=== PATIENT | female | born 2000 | race American Indian/Alaskan Native ===

== ENCOUNTER 2020-11-07 01:23 | Emergency (ER) | payer MEDICAID ==
[2020-11-07 02:50] LABS: Bilirubin,Urine NEG (Negative); Blood,Urine MOD (Negative); Color,Urine Yellow (Yellow); Mucus,Urine FEW /HPF; Protein,Urine <15 mg/dL mg/dL (Negative); Urobilinogen,Urine < 2.0 mg/dL (<2.0)
[2020-11-07 02:51] LABS: Basophils % (Auto) 0.3 % (0.0-1.8); Eosinophils # (Auto) 0.2 K/mm3 (0.0-0.4); Eosinophils % (Auto) 1.5 % (0.0-4.3); Hematocrit 36.7 % (30.3-42.9); Lymphocytes # (Auto) 2.9 K/mm3 (1.2-5.4); Lymphocytes % (Auto) 28.6 % (13.4-35.0); Mean Corpuscular HGB Conc 33 % (30-34); Mean Corpuscular Volume 90 fl (79-97); Monocytes # (Auto) 0.9 K/mm3 (0.0-0.8); Monocytes % (Auto) 8.8 % (0.0-7.3); Platelet Count 288 K/mm3 (140-440); Red Blood Count 4.07 M/mm3 (3.65-5.03)
[2020-11-07 03:02] LABS: Alanine Aminotransferase 8 units/L (7-56); Albumin 4.4 g/dL (3.9-5); BUN/Creatinine Ratio 21; Blood Urea Nitrogen 17 mg/dL (7-17); Calcium 9.7 mg/dL (8.4-10.2); Hemolysis Index 3
[2020-11-07] MEDS ORDERED: ACETAMINOPHEN 500 MG TAB PO ONE (03:13)
--- NOTE | 2020-11-07 04:15 | Ultrasound Report ---
OB Ultrasound HISTORY: Pelvic pain, positive . TECHNIQUE: Grayscale and color imaging performed. COMPARISON: None FINDINGS: Uterus measures 7.5 x 4.7 x 4.9 cm with endometrial convex measuring 1.6 cm. No intrauterin e gestation identified. The right ovary appears normal with preserved blood flow. The left ovary is not visualized on this ex am. No pelvic free fluid demonstrated. IMPRESSION: 1. No intrauterine gestation identified. 2. Left ovary not visualized. 3. Otherwise unremarkable exam. Signer Name: Marcelo Pierre MD Signed: 11/07/2020 4:11 AM Workstation Name: [id number]
[2020-11-07 05:05] VITALS: BP 139/68
--- NOTE | 2020-11-07 05:07 | Emergency Department Report ---
ED Abdominal Pain HPI - General Chief Complaint: Abdominal Pain Stated Complaint: CRAMPING WITH NO PERIOD DISCHARGE Source: patient Mode of arrival: Ambulatory Limitations: No Limitations - History of Present Illness Initial Comments: Patient is a A2 19-year-old -Vin[place] female with no past medical history presents to the ED with complaint of acute onset persistent suprapubic pain for the last 1 week, worse in the last 2 days. Patient states that her LMP was October 03, 2020 and that she has not had a menstrual cycle yet. Patient denies vaginal bleeding, vaginal discharge, dysuria, urinary frequency and urgency, fever, chills, cough, nausea and vomiting, fever, chills, traumatic injury, low back pain, diarrhea, sore throat or headache. MD Complaint: abdominal pain (suprapubic) -: Sudden, week(s) (1) Location: suprapubic Radiation: none Migration to: no migration Severity: moderate Severity scale (0 -10): 6 Quality: cramping, sharp Consistency: constant Improves With: nothing Worsens With: nothing Associated Symptoms: denies other symptoms. denies: nausea, vomiting, diarrhea, fever, chills, constipation, dysuria, hematemesis, hematochezia, melena, korey turia, anorexia, syncope - Related Data LMP Date: 10/03/20 Previous Rx's Medication Instructions Recorded Last Taken Type Acetaminophen [Tylenol] 500 mg PO Q6HR PRN #30 tablet 11/07/20 Unknown Rx Allergies Allergy/AdvReac Type Severity Reaction Status Date / Time No Known Allergies Allergy Unverified 11/07/20 02:05 ED Review of Systems ROS: Stated complaint: CRAMPING WITH NO PERIOD DISCHARGE Other details as noted in HPI Constitutional: denies: chills, fever Eyes: denies: eye pain, eye discharge, vision change ENT: denies: ear pain, throat pain Respiratory: denies: cough, shortness of breath, wheezing Cardiovascular: denies: chest pain, palpitations Endocrine: no symptoms reported Gastrointestinal: abdominal pain (Suprapubic pain). denies: nausea, vomiting, diarrhea Genitourinary: denies: urgency, dysuria, discharge Musculoskeletal: denies: back pain, joint swelling, arthralgia Skin: denies: rash, lesions Neurological: denies: headache, weakness, paresthesias Psychiatric: denies: anxiety, depression Hematological/Lymphatic: denies: easy bleeding, easy bruising ED Past Medical Hx - Past Medical History Previous Medical History?: No - Surgical History Past Surgical History?: No - Social History Smoking Status: Never Smoker Substance Use Type: None - Medications Home Medications: Home Medications Medication Instructions Recorded Confirmed Last Taken Type Acetaminophen [Tylenol] 500 mg PO Q6HR PRN #30 tablet 11/07/20 Unknown Rx ED Physical Exam - General Limitations: No Limitations General appearance: alert, in no apparent distress - Head Head exam: Present: atraumatic, normocephalic, normal inspection - Eye Eye exam: Present: normal appearance, PERRL, EOMI Pupils: Present: normal accommodation - ENT ENT exam: Present: normal exam, normal orophraynx, mucous membranes moist, TM's normal bilaterally, normal external ear exam - Neck Neck exam: Present: normal inspection, full ROM - Respiratory Respiratory exam: Present: normal lung sounds bilaterally. Absent: respiratory distress, wheezes, rales, rhonchi, chest wall tenderness, accessory muscle use, decreased breath sounds, prolonged expiratory - Cardiovascular Cardiovascular Exam: Present: regular rate, normal rhythm, normal heart sounds. Absent: systolic murmur, diastolic murmur, rubs, gallop - GI/Abdominal GI/Abdominal exam: Present: soft, tenderness (Palpable mild suprapubic tenderness), normal bowel sounds. Absent: guarding, rebound, hyperactive bowel sounds, hypoactive bowel sounds, organomegaly - Bi-manual exam: Present: other (Pelvic exam deferred at this time) - Extremities Exam Extremities exam: Present: normal inspection, normal capillary refill - Back Exam Back exam: Present: normal inspection, full ROM. Absent: tenderness, CVA tenderness (R), CVA tenderness (L), muscle spasm, paraspinal tenderness - Neurological Exam Neurological exam: Present: alert, oriented X3, CN II-XII intact, normal gait, reflexes normal - Psychiatric Psychiatric exam: Present: normal affect, normal mood - Skin Skin exam: Present: warm, dry, intact, normal color. Absent: rash ED Medical Decision Making - Lab Data Result diagrams: 11/07/20 02:19 11/07/20 02:19 - Radiology Data Radiology results: report reviewed, image reviewed [facility] [address] [place] [address] Ultrasound Report Signed Patient: DAKOTA GUERRA MR#: [id number] : 2000 Acct:[id number] Age/Sex: 19 / F ADM Date: 11/07/20 Loc: ED Attending Dr: Ordering Physician: KAVITHA RAMON Date of Service: 11/07/20 Procedure(s): US OB transvaginal Accession Number(s): [id number] cc: KAVITHA RAMON OB Ultrasound HISTORY: Pelvic pain, positive . TECHNIQUE: Grayscale and color imaging performed. COMPARISON: None FINDINGS: Uterus measures 7.5 x 4.7 x 4.9 cm with endometrial convex measuring 1.6 cm. No intrauterine gestation identified. The right ovary appears normal with preserved blood flow. The left ovary is not visualized on this exam. No pelvic free fluid demonstrated. IMPRESSION: 1. No intrauterine gestation identified. 2. Left ovary not visualized. 3. Otherwise unremarkable exam. Signer Name: Marcelo Pierre MD Signed: 11/07/2020 4:11 AM Workstation Name: [id number] Transcribed By: JW Dictated By: Marcelo Pierre MD Electronically Authenticated By: Marcelo Pierre MD Signed Date/Time: 11/07/20410 DD/ 9 TD/TT: ------- [address] [address] Ultrasound Report Signed Patient: DAKOTA GUERRA MR#: [id number] : 2000 Acct:[id number] Age/Sex: 19 / F ADM Date: 11/07/20 Loc: ED Attending Dr: Ordering Physician: KAVITHA RAMON Date of Service: 11/07/20 Procedure(s): US OB <= 14 weeks fetus Accession Number(s): [id number] cc: KAVITHA RAMON OB Ultrasound HISTORY: Pelvic pain, positive . TECHNIQUE: Grayscale and color imaging performed. COMPARISON: None FINDINGS: Uterus measures 7.5 x 4.7 x 4.9 cm with endometrial convex measuring 1.6 cm. No intrauterine gestation identified. The right ovary appears normal with preserved blood flow. The left ovary is not visualized on this exam. No pelvic free fluid demonstrated. IMPRESSION: 1. No intrauterine gestation identified. 2. Left ovary not visualized. 3. Otherwise unremarkable exam. Signer Name: Marcelo Pierre MD Signed: 11/07/2020 4:11 AM Workstation Name: [id number] Transcribed By: NAIF Dictated By: Marcelo Pierre MD Electronically Authenticated By: Marcelo Pierre MD Signed Date/Time: 11/07/20410 DD/ 9 TD/TT: - Medical Decision Making This is a A2 19-year-old -[place]in[place] female with no past medical history presents to the ED with complaint of acute onset persistent suprapubic p ain for the last 1 week, worse in the last 2 days. Patient states that her LMP was October 03, 2020 and that she has not had a menstrual cycle yet. In the ED, patient is alert and oriented x3 and is not in any distress. Lab test results were reviewed and showed hCG quant of 29.99, and a positive hCG serum test. Rest of the lab test results were nonactionable. Patient was treated for pain in the ED with Tylenol. Transvaginal and pelvic ultrasound showed no intrauterine and that left ovary was poorly visualized. Based on the patient's low hCG quant test results, it is likely that her is still too early to be detected by transvaginal or pelvic ultrasound. However ectopic cannot be ruled out. Patient was therefore discharged home and advised to maintain a complete pelvic rest and take Tylenol as needed for pain, and follow-up with [facility] physician in 2 to 3 days for reevaluation or return to the ED immediately if symptoms get worse. Patient was discharged home on ectopic precautions. - Differential Diagnosis Ectopic ; UTI; ovarian cyst; kidney stone; STD Critical care attestation.: If time is entered above; I have spent that time in minutes in the direct care of this critically ill patient, excluding procedure time. ED Disposition Clinical Impression: Acute pelvic pain, female, Early stage of Unspecified ectopic without intrauterine Qualifiers: Location of ectopic : unspecified location Qualified Code(s): O00.90 - Unspecified ectopic without intrauterine Disposition: HOME / SELF CARE / HOMELESS Is pt being admited?: No Condition: Stable Instructions: Abdominal Pain (ED), Pelvic Pain, Female, [id number], First Trimester of , [id number], Ectopic , [id number] Additional Instructions: All lab test results were reviewed and are all nonactionable except for a positive qualitative hCG test and hCG quantitative test of 29.99. The transvaginal and pelvic ultrasound showed no intrauterine positive because the may be too early given the level of your hCG quant studies test results. However ectopic cannot be ruled out. Therefore maintain a complete pelvic rest, take pain medication as needed, follow-up with your [facility] physician in 3 to 5 days for reevaluation. Return to the ED immediately if symptoms get worse. Prescriptions: Acetaminophen [Tylenol] 500 mg PO Q6HR PRN #30 tablet PRN Reason: Pain , Severe (7-10) Referrals: LULY TANG MD [Staff Physician] - 3-5 Days Time of Disposition: 05:15 Print Language: JAMAICAN
== END 2020-11-07 05:30 | disposition home or self-care (01) ==
LOC: ED 01:23
DX: O00.90 Unspecified ectopic pregnancy without intrauterine pregnancy (principal); Z3A.00 Weeks of gestation of pregnancy not specified; R10.2 Pelvic and perineal pain
CPT/HCPCS: 36415; 76801; 76817; 80053; 81001; 84702; 84703; 85025; 99284